=== PATIENT | male | born 1970 ===

== ENCOUNTER 2016-09-14 12:17 | Emergency (ER) | payer SELFPAY ==
[2016-09-14] MEDS ORDERED: Tetan/Diph/Pertus SYR(Tdap)* 0.5 ML SYR(BOOSTRIX) use SYR IM ONE (13:18)
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
[2016-09-14] MEDS ORDERED: Ibuprofen TAB* 400 MG PO ONE (13:23)
--- NOTE | 2016-09-14 13:51 | RAD ---
HISTORY: Facial pain, trauma COMPARISONS: None VIEWS: 4, Valerie, Mckinnon, Winkler, lateral, views of the face FINDINGS: BONE DENSITY: Normal. BONES: There is no displaced fracture. The orbital rims are intact. JOINTS: There is no arthropathy. ALIGNMENT: There is no dislocation. SOFT TISSUES: Unremarkable. OTHER FINDINGS: The paranasal sinuses are clear. The septum is deviated to the right. IMPRESSION: NO FACIAL FRACTURE. IF THERE ARE PERSISTENT CLINICAL CONCERN FOR FRACTURE, CT MAY BE MORE SENSITIVE.
== END 2016-09-14 14:25 | disposition home or self-care (01) ==
LOC: UCEAST 12:17
DX: S00.531A Contusion of lip, initial encounter (principal); W50.0XXA Accidental hit or strike by another person, initial encounter
CPT/HCPCS: 70150; 90471; 90715; 99202; A9270-GY; G0463

== ENCOUNTER 2019-04-25 14:57 | Emergency (ER) | payer SELFPAY ==
[2019-04-25 15:10] VITALS: BP 127/86
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
[2019-04-25] MEDS ORDERED: HYDROcodone/ACETAMIN 5-325 MG* 1 TAB PO ONE (16:39)
== END 2019-04-25 16:45 | disposition left against medical advice (07) ==
LOC: UCEAST 14:57
DX: M25.511 Pain in right shoulder (principal); F17.210 Nicotine dependence, cigarettes, uncomplicated; V49.49XA Driver injured in collision with other motor vehicles in traffic accident, initial encounter; Y92.9 Unspecified place or not applicable
CPT/HCPCS: 99212; G0463